=== PATIENT | female | born 1950 ===

== ENCOUNTER 2018-01-17 18:33 | Emergency (ER) | payer OTHER ==
[2018-01-17 19:10] VITALS: BP 168/100; PULSE 85; RESP 16; TEMP 98.1; O2SAT 100
--- NOTE | 2018-01-17 21:56 | ED PDOC ---
HPI: Psych/Substance Abuse Time Seen by Provider: 01/17/18 19:21 Chief Complaint (Nursing): Psychiatric Evaluation Chief Complaint (Provider): Psychiatric Evaluation History Per: Patient History/Exam Limitations: no limitations Onset/Duration Of Symptoms: Days Current Symptoms Are (Timing): Still Present Associated Symptoms: Depression, Suicidal Plan Additional Complaint(s): 67 year old female with HTN, depression, questionable ITP was sent via ambulance from [facility] office for SI. Patient states she has been treated for depression. She reports she had an argument with daughter 5 days ago which became heated. States she wanted shoot herself but does have gun and she took the bottle of depression pills but reasoned with herself. She proceeded to scratch her arms because she was upset and didnt know how to deal with frustration. Patient went to [facility] to ask for referral for psychologist who stated she needs to be seen in ER first. Her physician treated her skin lesion with Bacitracin dressing and gave her a tetanus shot. Denies SI ideation currently, HI ideation, visual/auditory hallucinations. Past Medical History Reviewed: Historical Data, Nursing Documentation, Vital Signs Vital Signs: Last Vital Signs Temp 98.1 F 01/17/18 19:03 Pulse 85 01/17/18 19:03 Resp 16 01/17/18 19:03 BP 168/100 H 01/17/18 19:03 Pulse Ox 100 01/17/18 19:03 - Medical History PMH: Denies: Diabetes, Hepatitis, HIV, HTN, Seizures, Sexually Transmitted Disease - Family History Family History: States: Unknown Family Hx - Social History Current smoker - smoking cessation education provided: No Alcohol: None Drugs: Denies - Immunization History Hx Tetanus Toxoid Vaccination: No Hx Influenza Vaccination: No Hx Pneumococcal Vaccination: No - Home Medications Home Medications: Ambulatory Orders Medication Instructions Recorded Bacitracin OINT 1 applic TP BID 5 Days tube 01/18/18 - Allergies Allergies/Adverse Reactions: Allergies Allergy/AdvReac Type Severity Reaction Status Date / Time Unobtainable Allergy Verified 08/29/13 15:22 Review of Systems ROS Statement: Except As Marked, All Systems Reviewed And Found Negative Constitutional: Negative for: Fever, Chills Skin: Positive for: Lesions (bilateral arms) Psych: Negative for: Suicidal ideation (homicidal ideation), Other (visual/auditory hallucinations) Physical Exam - Reviewed Nursing Documentation Reviewed: Yes Vital Signs Reviewed: Yes - Physical Exam Appears: Positive for: Non-toxic Head Exam: Positive for: ATRAUMATIC, NORMAL INSPECTION, NORMOCEPHALIC Skin: Negative for: Normal Color (Bilateral arms with multiple areas of purpura) Eye Exam: Positive for: EOMI, Conjunctival injection ENT: Positive for: Normal ENT Inspection Neck: Positive for: Normal, Painless ROM, Supple. Negative for: Decreased ROM Cardiovascular/Chest: Positive for: Regular Rate, Rhythm. Negative for: Murmur Respiratory: Positive for: Normal Breath Sounds. Negative for: Decreased Breath Sounds, Wheezing, Respiratory Distress Gastrointestinal/Abdominal: Positive for: Normal Exam, Soft. Negative for: Tenderness, Guarding, Rebound Back: Positive for: Normal Inspection Extremity: Positive for: Other (Left arm posterior aspect, two 3cm superficial avulsions of skin. Right arm with two lesions with scabs in place, mild erythema no edema or drainage noted ). Negative for: Deformity, Swelling Neurologic/Psych: Positive for: Alert, Oriented (x3), Other (Good strength in upper and lower extremities ). Negative for: Motor/Sensory Deficits - ECG O2 Sat by Pulse Oximetry: 100 (RA) Pulse Ox Interpretation: Normal Medical Decision Making Medical Decision Making: Time: 2131 Initial Plan: Crisis Evaluation Reevaluation Scribe Attestation: Documented by Vaibhav Kirk, acting as a scribe for Carmela Setrling PA-C Provider Scribe Attestation: All medical record entries made by the Scribe were at my direction and personally dictated by me. I have reviewed the chart and agree that the record accurately reflects my personal performance of the history, physical exam, medical decision making, and the department course for this patient. I have also personally directed, reviewed, and agree with the discharge instructions and disposition. Disposition - Clinical Impression Clinical Impression: Depression - Patient ED Disposition Is Patient to be Admitted: No Discussed With : Shay Sheppard Counseled Patient/Family Regarding: Need For Followup - Disposition Referrals: Community [facility] [Outside] Disposition: Routine/Home Disposition Time: 00:42 Condition: STABLE Additional Instructions: F/u with mental health provider for further care for your depression. Keep wounds on Left forearm covered with bacitracin for the next day and then can leave open to the air. Use Bacitracin twice daily. Prescriptions: Bacitracin OINT 1 applic TP BID 5 Days tube Instructions: Depression, Adult (DC) Forms: Listen Edition ([place] Verdean) Print Language: BRAZILIAN
== END 2018-01-18 | disposition home or self-care (01) ==
LOC: H.ER 18:33
DX: F32.9 Major depressive disorder, single episode, unspecified (principal); Z00.8 Encounter for other general examination